=== PATIENT | female | born 1945 | race Caucasian/White ===

== ENCOUNTER 2023-10-02 17:39 | Emergency (ER) | payer OTHER ==
--- NOTE | 2023-10-02 18:59 | ER ---
Nurse's Notes [facility] Name: Beau Hill Age: 78 yrs Sex: Female : 1945 Arrival Date: 10/02/2023 Time: 17:39 Bed 9 Private MD: Diagnosis: Epistaxis Presentation: 10/01 17:48 Chief complaint: Patient states: Sneezed and nose started gushing blood. + clots and ll1 gagging on blood in her throat. Coronavirus screen: Client denies travel out of the [place] in the last 14 days. At this time, the client does not indicate any symptoms associated with coronavirus-19. Ebola Screen: Patient denies travel to an Ebola-affected area in the 21 days before illness onset. Initial Sepsis Screen: Does the patient meet any 2 criteria? No. Patient's initial sepsis screen is negative. Does the patient have a suspected source of infection? No. Patient's initial sepsis screen is negative. Risk Assessment: Do you want to hurt yourself or someone else? Patient reports no desire to harm self or others. Onset of symptoms was October 02, 2023. 17:48 Method Of Arrival: Wheelchair ll1 17:48 Acuity: LISA 2 ll1 Historical: - Allergies: 17:47 Darvon; ll1 17:47 Percodan; ll1 17:47 Morphine; ll1 - PMHx: 17:47 Hypertensive disorder; Diabetes mellitus; Hypercholesterolemia; ll1 - Immunization history:: Adult Immunizations. - Infectious Disease History:: Denies. - Social history:: Smoking status: Patient denies any tobacco usage or history of. - Family history:: not pertinent. Screenin:09 [facility] ED Fall Risk Assessment (Adult) History of falling in the last 3 months, as6 including since admission No falls in past 3 months (0 pts) Confusion or Disorientation No (0 pts) Intoxicated or Sedated No (0 pts) Impaired Gait No (0 pts) Mobility Assist Device Used No (0 pt) Altered Elimination No (0 pt) Score/Fall Risk Level 0 - 2 = Low Risk Oriented to surroundings, Maintained a safe environment, Educated pt \T\ family on fall prevention, incl call for assistance when getting out of bed, Assessed \T\ reinforced patient's understanding of fall precautions. Abuse screen: Denies threats or abuse. Denies injuries from another. Nutritional screening: No deficits noted. Tuberculosis screening: No symptoms or risk factors identified. Assessment: 18:08 General: Appears in no apparent distress. Behavior is calm, cooperative. Pain: Denies as6 pain. EENT: Nares with bleeding noted pt applying pressure to nose. pt reports bleeding has improved . 19:05 General: bleeding has stopped . as6 Vital Signs: 17:48 BP 224 / 190; Resp 18; Pulse Ox 98% ; Weight 78.02 kg; Height 5 ft. 0 in. ; Pain 0/10; ll1 19:05 BP 174 / 73; Pulse 63; Resp 18; Pulse Ox 97% ; as6 17:48 Body Mass Index 33.59 (78.02 kg, 152.4 cm) ll1 17:48 Pain Scale: Adult ll1 ED Course: 17:42 Patient arrived in ED. im 17:43 Mic Ortega MD is Attending Physician. rt 17:44 Jacob Reynoso RN is Primary Nurse. as6 17:47 Arm band placed on Patient placed in an exam room, on a stretcher. ll1 17:49 Triage completed. ll1 18:09 Bed in low position. Call light in reach. Side rails up X 1. as6 19:05 Provided Education on: what to do if bleeding resumes . as6 19:06 Assist provider with nosebleed control using direct pressure, Bleeding from both nares. as6 Set up for procedure. Performed by Mic Ortega MD Bleeding stopped. Patient tolerated well. Patient did not have IV access during this emergency room visit. Administered Medications: No medications were administered Medication: 18:00 VIS not applicable for this client. as6 Outcome: 18:58 Discharge ordered by . rt 19:06 Discharged to home ambulatory, with significant other, as6 19:06 Condition: stable 19:06 Discharge instructions given to patient, Instructed on discharge instructions, follow up and referral plans. Demonstrated understanding of instructions, follow-up care, 19:07 Patient left the ED. as6 Signatures: Brenda Melton RN RN ll1 Jacob Reynoso, RAQUEL RN as6 Mic Ortega MD MD rt Airam Jasso im
--- NOTE | 2023-10-02 19:00 | EDPHYS ---
Physician Documentation [facility] Name: Beau Hill Age: 78 yrs Sex: Female : 1945 Arrival Date: 10/02/2023 Time: 17:39 Bed 9 Private MD: ED Physician Mic Ortega HPI: 10/01 21:43 This 78 yrs old Female presents to ER via Wheelchair with complaints of Nose Bleed. rt 21:43 Patient presents to the ED with epistaxis from the left nare that started after rt sneezing. Denies any facial trauma, other symptoms. Symptoms are moderate in severity, no other aggravating or alleviating factors.. Historical: - Allergies: 17:47 Darvon; ll1 17:47 Percodan; ll1 17:47 Morphine; ll1 - PMHx: 17:47 Hypertensive disorder; Diabetes mellitus; Hypercholesterolemia; ll1 - Immunization history:: Adult Immunizations. - Infectious Disease History:: Denies. - Social history:: Smoking status: Patient denies any tobacco usage or history of. - Family history:: not pertinent. ROS: 21:43 Constitutional: Negative for fever, chills, and weight loss, Cardiovascular: Negative rt for chest pain, palpitations, and edema, Respiratory: Negative for shortness of breath, cough, wheezing, and pleuritic chest pain, Abdomen/GI: Negative for abdominal pain, nausea, vomiting, diarrhea, and constipation, MS/Extremity: Negative for injury and deformity, Skin: Negative for injury, rash, and discoloration, Neuro: Negative for headache, weakness, numbness, tingling, and seizure, 21:43 ENT: Positive for nose bleed, Exam: 21:43 Constitutional: This is a well developed, well nourished patient who is awake, alert, rt and in no acute distress. Head/Face: Normocephalic, atraumatic. Chest/axilla: Normal chest wall appearance and motion. Nontender with no deformity. No lesions are appreciated. Cardiovascular: Regular rate and rhythm with a normal S1 and S2. No gallops, murmurs, or rubs. Normal PMI, no JVD. No pulse deficits. Respiratory: Lungs have equal breath sounds bilaterally, clear to auscultation and percussion. No rales, rhonchi or wheezes noted. No increased work of breathing, no retractions or nasal flaring. Abdomen/GI: Soft, non-tender, with normal bowel sounds. No distension or tympany. No guarding or rebound. No evidence of tenderness throughout. Skin: Warm, dry with normal turgor. Normal color with no rashes, no lesions, and no evidence of cellulitis. MS/ Extremity: Pulses equal, no cyanosis. Neurovascular intact. Full, normal range of motion. Neuro: Awake and alert, GCS 15, oriented to person, place, time, and situation. Cranial nerves II-XII grossly intact. Motor strength 5/5 in all extremities. Sensory grossly intact. Cerebellar exam normal. Normal gait. 21:43 ENT: Bleeding from left nare, no bruising. Vital Signs: 17:48 BP 224 / 190; Resp 18; Pulse Ox 98% ; Weight 78.02 kg; Height 5 ft. 0 in. ; Pain 0/10; ll1 19:05 BP 174 / 73; Pulse 63; Resp 18; Pulse Ox 97% ; as6 17:48 Body Mass Index 33.59 (78.02 kg, 152.4 cm) ll1 17:48 Pain Scale: Adult ll1 MDM: 17:54 Patient medically screened. rt 21:43 Differential diagnosis: Epistaxis. Data reviewed: vital signs, nurses notes. Test rt considered but Not performed: Labs: Stable vital signs, not massive hemorrhage, labs not indicated. Care significantly affected by the following chronic conditions: Hypertension. ED course: Bleeding stopped with direct pressure, no further interventions are needed. Patient is stable for outpatient care, return precautions discussed.. Administered Medications: No medications were administered Disposition Summary: 10/02/23 18:58 Discharge Ordered Notes: Location: Home rt Problem: new rt Symptoms: have improved rt Condition: Stable rt Diagnosis - Epistaxis rt Followup: rt - With: Private Physician - When: 2 - 3 days - Reason: Discharge Instructions: - Discharge Summary Sheet rt - Nosebleed, Adult rt Forms: - Medication Reconciliation Form rt - Antibiotic Education rt - Prescription Opioid Use rt - Patient Portal Instructions rt - Leadership Thank You Letter rt Signatures: Brenda Melton RN RN ll1 Jacob Reynoso RN RN as6 Mic Ortega MD MD rt
[2023-10-02 19:34] VITALS: BP 174/73; O2SAT 97
== END 2023-10-02 19:07 | disposition home or self-care (01) ==
LOC: ER 17:39
DX: R04.0 Epistaxis (principal)
CPT/HCPCS: 99283